=== PATIENT | female | born 1955 | race African-American/Black ===

== ENCOUNTER 2017-06-24 16:28 | Emergency (ER) | payer MEDICAID, OTHER ==
[~2017-06-24] VITALS: Ht 165.1 cm; Wt 57.2 kg
[2017-06-24 18:50] VITALS: BP 104/74
[2017-06-24] MEDS ORDERED: SODIUM CHLORIDE 0.9% 1,000 ML IV ONE (20:15)
[2017-06-24] MEDS ORDERED: ONDANSETRON HCL 4 MG/2 ML VIAL IV ONE (20:45)
[2017-06-24] MEDS ORDERED: cefTRIAXone 1GM/10ml IVPUSH 10 ML IV ONE (20:45)
[2017-06-24] MEDS ORDERED: LIDOCAINE 1% (LOCAL ANESTH.) PF 5ml SDV IJ ONE (20:45)
== END 2017-06-24 21:20 | disposition home or self-care (01) ==
LOC: ER 16:38
DX: M27.8 Other specified diseases of jaws (principal); K02.9 Dental caries, unspecified
CPT/HCPCS: 96361; 96374; 96375; 99284; J2405; J7030